=== PATIENT | female | born 1980 | race Caucasian/White ===

== ENCOUNTER → 2018-01-19 | Outpatient (REF) | payer BC, OTHER ==
[2018-01-19 21:04] LABS: BASO % 0.4 % (0.0-1.0); EOS # 0.1 10^3/uL (0.0-0.50); EOS % 1.1 % (0.0-3.0); HEMATOCRIT 42.5 % (36.0-47.0); HEMOGLOBIN 14.1 g/dl (12.0-16.0); IMMATURE GRANULOCYTE % 0.3 % (0-3.0); LYMPH # 2.2 10^3/uL (1.5-4.5); MEAN CORPUSCULAR HEMOGLOBIN 30.9 pg (27.0-33.0); MEAN CORPUSCULAR HGB CONC 33.2 g/dl (32.0-36.5); MONO # 0.4 10^3/uL (0.0-0.8); MONO % 5.4 % (0.0-5.0); NEUTROPHILS # 4.5 10^3/uL (1.8-7.7); NEUTROPHILS % 61.8 % (36.0-66.0); PLATELET COUNT, AUTOMATED 235 10^3/uL (150-450); RED BLOOD COUNT 4.57 10^6/uL (4.00-5.40); RED CELL DISTRIBUTION WIDTH 12.2 % (11.5-14.5); WHITE BLOOD COUNT 7.2 10^3/uL (4.0-10.0)
[2018-01-20 14:28] LABS: THYROGLOBULIN ANTIBODY 18.1 U/ML (<60.0)
== END ==
LOC: M LAB REF 20:09 → M LABWUC 20:09
DX: D22.61 Melanocytic nevi of right upper limb, including shoulder (principal); D22.72 Melanocytic nevi of left lower limb, including hip; D22.5 Melanocytic nevi of trunk; L81.4 Other melanin hyperpigmentation
CPT/HCPCS: 84443

== ENCOUNTER → 2018-01-25 | Outpatient (CLI) | payer BC, OTHER ==
[2018-01-25 19:20] LABS: ALBUMIN 4.3 GM/DL (3.2-5.2); ALBUMIN/GLOBULIN RATIO 1.39 (1.00-1.93); ALKALINE PHOSPHATASE 53 U/L (45-117); ALT/SGPT 25 U/L (12-78); ANION GAP 9 MEQ/L (8-16); AST/SGOT 21 U/L (7-37); BILIRUBIN,TOTAL 0.6 MG/DL (0.2-1.0); BLOOD UREA NITROGEN 14 MG/DL (7-18); CALCIUM LEVEL 9.4 MG/DL (8.5-10.1); CARBON DIOXIDE LEVEL 27 MEQ/L (21-32); CHLORIDE LEVEL 106 MEQ/L (98-107); CREATININE FOR GFR 1.03 MG/DL (0.55-1.30); GLOMERULAR FILTRATION RATE > 60.0 (>60); GLUCOSE, FASTING 74 MG/DL (70-100); POTASSIUM SERUM 4.3 MEQ/L (3.5-5.1); SODIUM LEVEL 142 MEQ/L (136-145); TOTAL PROTEIN 7.4 GM/DL (6.4-8.2)
== END ==
LOC: M ADAMS 17:08
DX: R53.83 Other fatigue (principal)
CPT/HCPCS: 80053

== ENCOUNTER → 2018-02-16 | Outpatient (REF) | payer OTHER ==
[2018-02-16 15:32] LABS: BASO % 0.4 % (0.0-1.0); EOS # 0.1 10^3/uL (0.0-0.50); EOS % 1.1 % (0.0-3.0); HEMATOCRIT 45.1 % (36.0-47.0); HEMOGLOBIN 15.1 g/dl (12.0-15.5); IMMATURE GRANULOCYTE % 0.3 % (0-3.0); LYMPH # 2.1 10^3/uL (1.5-4.5); LYMPH % 27.9 % (24.0-44.0); MEAN CORPUSCULAR HEMOGLOBIN 31.3 pg (27.0-33.0); MEAN CORPUSCULAR HGB CONC 33.5 g/dl (32.0-36.5); MEAN CORPUSCULAR VOLUME 93.4 fl (80.0-96.0); MONO # 0.5 10^3/uL (0.0-0.8); MONO % 6.7 % (0.0-5.0); NEUTROPHILS # 4.7 10^3/uL (1.8-7.7); NEUTROPHILS % 63.6 % (36.0-66.0); PLATELET COUNT, AUTOMATED 244 10^3/uL (150-450); RED BLOOD COUNT 4.83 10^6/uL (4.00-5.40); RED CELL DISTRIBUTION WIDTH 12.5 % (11.5-14.5); WHITE BLOOD COUNT 7.5 10^3/uL (4.0-10.0)
[2018-02-16 15:48] LABS: C REACTIVE PROTEIN QUANTITATIV < 0.30 MG/DL (0.00-0.30); RHEUMATOID FACTOR QUANT < 10.0 IU/ML (<15.0)
[2018-02-16 16:03] LABS: ERYTHROCYTE SEDIMENTATION RATE 1 mm/hr (0-20)
[2018-02-17 10:45] LABS: HEPATITIS B SURFACE ANTIGEN NEGATIVE (NEGATIVE)
[2018-02-17 11:13] LABS: HIV 1&2 SCREEN CENTAUR NEGATIVE (NEGATIVE)
[2018-02-17 11:13] LABS: HEPATITIS C VIRUS ABY INDEX 0.1 INDEX (<0.8)
== END ==
LOC: M SFHCPLAZ 13:29
DX: M25.50 Pain in unspecified joint (principal); R76.8 Other specified abnormal immunological findings in serum

== ENCOUNTER → 2019-05-20 | Outpatient (CLI) | payer BC, OTHER ==
--- NOTE | 2019-05-20 18:47 | REP ---
Clinical: Pain with injury Technique: AP, lateral, bilateral oblique views of the right ankle Findings: No acute fracture or dislocation. Osseous structures, soft tissues, and joint spaces including are normal. No subcutaneous emphysema or radiodense foreign body. Impression: No acute fracture or dislocation. Electronically Signed by Sam Hughes MD 05/20/2019 06:38 P
== END ==
LOC: M ADAMS 17:40
PROVIDERS: ATTEND Physician Assistant Medical
DX: M25.571 Pain in right ankle and joints of right foot (principal)

== ENCOUNTER → 2020-12-31 | Outpatient (CLI) | payer BC, OTHER ==
[2020-12-31 13:41] LABS: BASO % 0.2 % (0.0-1.0); EOS % 0.8 % (0.0-3.0); HEMOGLOBIN 13.9 g/dl (12.0-15.5); LYMPH # 1.2 10^3/uL (1.5-5.0); LYMPH % 23.4 % (24.0-44.0); MEAN CORPUSCULAR HEMOGLOBIN 29.8 pg (27.0-33.0); MEAN CORPUSCULAR HGB CONC 32.3 g/dl (32.0-36.5); MEAN CORPUSCULAR VOLUME 92.3 fl (80.0-96.0); MONO # 0.3 10^3/uL (0.0-0.8); MONO % 5.7 % (0.0-8.0); NEUTROPHILS # 3.5 10^3/uL (1.5-8.5); NEUTROPHILS % 69.7 % (36.0-66.0); PLATELET COUNT, AUTOMATED 199 10^3/uL (150-450); RED BLOOD COUNT 4.66 10^6/uL (4.00-5.40); WHITE BLOOD COUNT 5.1 10^3/uL (4.0-10.0)
[2020-12-31 13:56] LABS: ESTRADIOL 65.8 PG/ML; FOLLICLE STIMULATING HORMONE 5.9 mIU/mL; PROGESTERONE 0.21 NG/ML
[2021-01-01 16:16] LABS: TESTOSTERONE FREE (DIRECT) 4.3 pg/mL (0.0-4.2)
== END ==
LOC: M LABDRWAD 10:20
PROVIDERS: ATTEND Family Medicine
DX: R68.82 Decreased libido (principal); N95.1 Menopausal and female climacteric states; E34.9 Endocrine disorder, unspecified; Z79.899 Other long term (current) drug therapy; R89.1 Abnormal level of hormones in specimens from other organs, systems and tissues

== ENCOUNTER → 2021-02-25 | Outpatient (REF) | payer OTHER, BC ==
[2021-02-25 14:08] LABS: BASO % 0.4 % (0.0-1.0); EOS # 0.1 10^3/uL (0.0-0.5); EOS % 1.7 % (0.0-3.0); HEMOGLOBIN 13.6 g/dl (12.0-15.5); LYMPH # 1.1 10^3/uL (1.5-5.0); LYMPH % 23.1 % (24.0-44.0); MEAN CORPUSCULAR HGB CONC 33.2 g/dl (32.0-36.5); MEAN CORPUSCULAR VOLUME 93.4 fl (80.0-96.0); MONO # 0.6 10^3/uL (0.0-0.8); MONO % 12.4 % (2.0-8.0); NEUTROPHILS # 2.8 10^3/uL (1.5-8.5); PLATELET COUNT, AUTOMATED 196 10^3/uL (150-450); RED BLOOD COUNT 4.39 10^6/uL (4.00-5.40); WHITE BLOOD COUNT 4.6 10^3/uL (4.0-10.0)
[2021-02-25 14:44] LABS: ESTRADIOL 30.8 PG/ML; FOLLICLE STIMULATING HORMONE 3.8 mIU/mL; PROGESTERONE 0.21 NG/ML
[2021-02-26 19:10] LABS: TESTOSTERONE FREE (DIRECT) 1.4 pg/mL (0.0-4.2)
== END ==
LOC: M LABDRWAD 12:37
PROVIDERS: ATTEND Physician Assistant Medical
DX: E34.9 Endocrine disorder, unspecified (principal); R89.1 Abnormal level of hormones in specimens from other organs, systems and tissues; N95.1 Menopausal and female climacteric states

== ENCOUNTER → 2021-03-07 | Outpatient (CLI) | payer BC, OTHER ==
--- NOTE | 2021-03-07 15:42 | REP ---
INDICATION: L FINGER INJURY COMPARISON: None. TECHNIQUE: AP, lateral, bilateral oblique views left 2nd digit. FINDINGS: There is a nondisplaced transverse fracture along the base of the distal phalanx. IMPRESSION: Nondisplaced transverse fracture involving the distal phalanx. <Electronically signed by Sam Hughes > 03/07/21 1530
== END ==
LOC: M RAD 15:13
PROVIDERS: ATTEND Physician Assistant
DX: S62.661A Nondisplaced fracture of distal phalanx of left index finger, initial encounter for closed fracture (principal); X58.XXXA Exposure to other specified factors, initial encounter; Y92.9 Unspecified place or not applicable

== ENCOUNTER → 2021-03-18 | Outpatient (CLI) | payer BC ==
--- NOTE | 2021-03-18 13:30 | REPMRS ---
Patient History The patient states she had a clinical breast exam in . Taking hormonal contraceptives for 13 years beginning at age 27. Testosterone implant 6 months beginning at age 40. Patient states no breast complaints today. Patient has signed MRS History Sheet. Digital Woman Screen Mammo: March 18, 2021 - Exam #: [id number] Bilateral CC and MLO view(s) were taken. Technologist: Rachel Chacko [employer] Machine FINDINGS: The breast tissue is heterogeneously dense. This may lower the sensitivity of mammography. Screening. Digital screening (2D) mammography was performed bilaterally in the CC and MLO projections. Additionally, breast tomosynthesis (3D mammography) was performed bilaterally in the CC and MLO projections. Todays exam was compared to the prior exams(s). By history, the patient has no complaints of a palpable breast abnormality or other significant breast complaints. The breasts are unchanged in size and shape.Once again, dense heterogenous fibroglandular elements are seen bilaterally in a stable appearing pattern but to such a degree that the sensitivity of the mammogram in detecting cancer is decreased. There are no thong-soft tissue densities or spiculated masses. There is no internal architectural distortion. There are no suspicious thong-calcific clusters. Skin thickening or nipple retraction is not present. IMPRESSION: BI-RADS Category 2- Benign Findings(s). There is no evidence of malignant alteration of the breasts. Followup examination recommended in one year. The Volpara volumetric breast density category is C, the breasts are heterogenously dense which may obscure small masses.This mammogram was read with the assistance of [facility],an FDA approved computer aided detection system for mammography. The lifetime Tyrer-Cuzick score is 10.4 % Negative x-ray reports should not delay surgical consultation if a dominant or clinically suspicious mass is present. Not all breast cancers can be identified by mammography. Therefore, we recommend that you continue to perform regular breast self-examination and physical examination and then promptly contact your physician of any concerns or changes. Adenosis and dense breasts may obscure an underlying neoplasm. Assessment: BI-RADS/ACR category 2 mammogram. Benign Findings. Recommendation Routine screening mammogram of both breasts in 1 year. Electronically Signed By: Micheal Kaplan DO 03/18/21 2090
== END ==
LOC: M WHC 12:12
PROVIDERS: ATTEND Plastic Surgery
DX: Z12.31 Encounter for screening mammogram for malignant neoplasm of breast (principal)

== ENCOUNTER → 2021-04-09 | Outpatient (CLI) | payer BC ==
--- NOTE | 2021-04-10 08:11 | REPPI ---
INDICATION: M54.2 NECK PAIN M79.10 MUSCLE PAIN A69.20 LYME DISEASE COMPARISON: None. TECHNIQUE: AP, lateral, flexion/extension, bilateral oblique, swimmer's and open-mouth views. FINDINGS: Straightening of normal lordosis is nonspecific. Alignment is maintained. Moderate to advanced multilevel degenerative changes primarily involving C5-6 through C7-T1 includes endplate sclerosis, marginal osteophytosis, disc space narrowing, and facet hypertrophy. No evidence for acute fracture/compression injury or subluxation. Open mouth view demonstrates normal C1-C2 articulation and odontoid process. IMPRESSION: Moderate to advanced multilevel degenerative changes centered at C6-7. <Electronically signed by Sam Hughes > 04/10/21 0800
== END ==
LOC: M PLAIMG 15:22
PROVIDERS: ATTEND Internal Medicine Infectious Disease
DX: M50.323 Other cervical disc degeneration at C6-C7 level (principal); M79.10 Myalgia, unspecified site; A69.20 Lyme disease, unspecified

== ENCOUNTER → 2021-05-21 | Outpatient (CLI) | payer BC, OTHER ==
[2021-05-21 10:21] LABS: BASO % 0.5 % (0.0-1.0); EOS # 0.1 10^3/uL (0.0-0.5); EOS % 1.4 % (0.0-3.0); HEMOGLOBIN 15.2 g/dl (12.0-15.5); LYMPH # 1.8 10^3/uL (1.5-5.0); LYMPH % 24.6 % (24.0-44.0); MEAN CORPUSCULAR HEMOGLOBIN 30.4 pg (27.0-33.0); MEAN CORPUSCULAR HGB CONC 32.3 g/dl (32.0-36.5); MONO # 0.5 10^3/uL (0.0-0.8); MONO % 6.4 % (2.0-8.0); NEUTROPHILS # 4.9 10^3/uL (1.5-8.5); NEUTROPHILS % 66.8 % (36.0-66.0); PLATELET COUNT, AUTOMATED 317 10^3/uL (150-450); WHITE BLOOD COUNT 7.3 10^3/uL (4.0-10.0)
[2021-05-21 10:51] LABS: ESTRADIOL 55.3 PG/ML; FOLLICLE STIMULATING HORMONE 7.1 mIU/mL; PROGESTERONE 0.21 NG/ML
[2021-05-22 19:08] LABS: TESTOSTERONE FREE (DIRECT) 2.5 pg/mL (0.0-4.2)
== END ==
LOC: M PLALAB 08:56
PROVIDERS: ATTEND Nurse Practitioner Family
DX: N95.1 Menopausal and female climacteric states (principal); E34.9 Endocrine disorder, unspecified; E07.89 Other specified disorders of thyroid

== ENCOUNTER → 2021-08-19 | Outpatient (CLI) | payer BC, OTHER ==
[2021-08-19 14:03] LABS: BASO % 0.4 % (0.0-1.0); EOS # 0.1 10^3/uL (0.0-0.5); EOS % 1.4 % (0.0-3.0); HEMATOCRIT 46.4 % (36.0-47.0); HEMOGLOBIN 15.2 g/dl (12.0-15.5); LYMPH # 2.1 10^3/uL (1.5-5.0); LYMPH % 27.9 % (24.0-44.0); MEAN CORPUSCULAR HEMOGLOBIN 30.5 pg (27.0-33.0); MEAN CORPUSCULAR HGB CONC 32.8 g/dl (32.0-36.5); MONO # 0.5 10^3/uL (0.0-0.8); MONO % 6.8 % (2.0-8.0); NEUTROPHILS # 4.7 10^3/uL (1.5-8.5); NEUTROPHILS % 63.1 % (36.0-66.0); PLATELET COUNT, AUTOMATED 237 10^3/uL (150-450); RED BLOOD COUNT 4.99 10^6/uL (4.00-5.40); WHITE BLOOD COUNT 7.4 10^3/uL (4.0-10.0)
[2021-08-19 14:43] LABS: ESTRADIOL 164.1 PG/ML; FOLLICLE STIMULATING HORMONE 6.8 mIU/mL; PROGESTERONE 0.21 NG/ML
[2021-08-20 19:07] LABS: TESTOSTERONE FREE (DIRECT) 0.6 pg/mL (0.0-4.2)
== END ==
LOC: M PLALAB 10:08
PROVIDERS: ATTEND Family Medicine
DX: Z09 Encounter for follow-up examination after completed treatment for conditions other than malignant neoplasm (principal); Z87.898 Personal history of other specified conditions

== ENCOUNTER → 2022-03-04 | Outpatient (CLI) | payer BC, OTHER ==
[2022-03-04 13:59] LABS: BASO % 0.5 % (0.0-1.0); EOS # 0.1 10^3/uL (0.0-0.5); EOS % 1.9 % (0.0-3.0); HEMATOCRIT 46.7 % (36.0-47.0); HEMOGLOBIN 15.5 g/dl (12.0-15.5); LYMPH % 26.6 % (24.0-44.0); MEAN CORPUSCULAR HEMOGLOBIN 30.6 pg (27.0-33.0); MEAN CORPUSCULAR HGB CONC 33.2 g/dl (32.0-36.5); MEAN CORPUSCULAR VOLUME 92.1 fl (80.0-96.0); MONO # 0.5 10^3/uL (0.0-0.8); MONO % 6.8 % (2.0-8.0); NEUTROPHILS # 4.8 10^3/uL (1.5-8.5); NEUTROPHILS % 63.8 % (36.0-66.0); PLATELET COUNT, AUTOMATED 291 10^3/uL (150-450); RED BLOOD COUNT 5.07 10^6/uL (4.00-5.40); WHITE BLOOD COUNT 7.5 10^3/uL (4.0-10.0)
[2022-03-04 14:37] LABS: ALBUMIN 4.2 GM/DL (3.2-5.2); ALT/SGPT 31 U/L (12-78); BILIRUBIN,TOTAL 0.5 MG/DL (0.2-1.0); BLOOD UREA NITROGEN 13 MG/DL (7-18); CALCIUM LEVEL 9.4 MG/DL (8.5-10.1); CARBON DIOXIDE LEVEL 29 MEQ/L (21-32); CHLORIDE LEVEL 104 MEQ/L (98-107); CHOLESTEROL LEVEL 200 MG/DL (<200); CHOLESTEROL RISK RATIO 2.857 (<5); CREATININE FOR GFR 0.91 MG/DL (0.55-1.30); FERRITIN 59 NG/ML (8-252); FREE T3 2.6 PG/ML (2.2-4.0); FREE T4 0.88 NG/DL (0.76-1.46); GLOMERULAR FILTRATION RATE > 60.0 (>58); GLUCOSE, FASTING 77 MG/DL (70-100); HDL CHOLESTEROL 70 MG/DL (>40); IRON (FE) 108 UG/DL (50-170); LDL CHOLESTEROL 112 MG/DL (<100); MAGNESIUM LEVEL 2.4 MG/DL (1.8-2.4); NON-HDL-C 130 MG/DL; POTASSIUM SERUM 4.6 MEQ/L (3.5-5.1); SODIUM LEVEL 139 MEQ/L (136-145); TOTAL PROTEIN 7.3 GM/DL (6.4-8.2); TRIGLYCERIDES LEVEL 88 MG/DL (<150); URIC ACID 3.3 MG/DL (2.6-6.0)
[2022-03-04 14:38] LABS: TOTAL 25(OH) VITAMIN D 61.1 NG/ML (30.0-100.0)
[2022-03-04 14:39] LABS: ESTRADIOL 46.7 PG/ML; LUTEINIZING HORMONE 0.6 mIU/mL; PROGESTERONE 0.33 NG/ML
[2022-03-04 14:40] LABS: FOLLICLE STIMULATING HORMONE 1.6 mIU/mL
[2022-03-05 18:10] LABS: INSULIN LEVEL 5.7 uIU/mL (2.6-24.9); TESTOSTERONE FREE (DIRECT) 0.9 pg/mL (0.0-4.2)
== END ==
LOC: M PLALAB 11:57
PROVIDERS: ATTEND Family Medicine
DX: Z00.00 Encounter for general adult medical examination without abnormal findings (principal); Z13.1 Encounter for screening for diabetes mellitus; E78.5 Hyperlipidemia, unspecified; Z13.0 Encounter for screening for diseases of the blood and blood-forming organs and certain disorders involving the immune mechanism

== ENCOUNTER → 2022-12-05 | Outpatient (CLI) | payer OTHER, BC ==
[2022-12-05 14:24] LABS: BASO % 0.6 % (0.0-1.0); EOS # 0.1 10^3/uL (0.0-0.5); EOS % 1.8 % (0.0-3.0); HEMATOCRIT 45.1 % (36.0-47.0); HEMOGLOBIN 14.3 g/dl (12.0-15.5); LYMPH # 1.9 10^3/uL (1.5-5.0); LYMPH % 27.9 % (24.0-44.0); MEAN CORPUSCULAR HEMOGLOBIN 29.9 pg (27.0-33.0); MEAN CORPUSCULAR HGB CONC 31.7 g/dl (32.0-36.5); MEAN CORPUSCULAR VOLUME 94.4 fl (80.0-96.0); MONO # 0.5 10^3/uL (0.0-0.8); MONO % 8.1 % (2.0-8.0); NEUTROPHILS # 4.1 10^3/uL (1.5-8.5); NEUTROPHILS % 61.3 % (36.0-66.0); PLATELET COUNT, AUTOMATED 258 10^3/uL (150-450); RED BLOOD COUNT 4.78 10^6/uL (4.00-5.40); WHITE BLOOD COUNT 6.6 10^3/uL (4.0-10.0)
[2022-12-05 14:53] LABS: ESTRADIOL 202.5 PG/ML; FOLLICLE STIMULATING HORMONE 4.8 mIU/ML
[2022-12-05 14:54] LABS: PROGESTERONE 0.21 NG/ML
[2022-12-06 20:07] LABS: TESTOSTERONE FREE (DIRECT) 0.6 pg/mL (0.0-4.2)
== END ==
LOC: M LABDRWAD 09:57
PROVIDERS: ATTEND Family Medicine
DX: R89.1 Abnormal level of hormones in specimens from other organs, systems and tissues (principal); N95.1 Menopausal and female climacteric states; E34.9 Endocrine disorder, unspecified; E07.89 Other specified disorders of thyroid

== ENCOUNTER → 2023-02-12 | Outpatient (CLI) | payer BC, OTHER ==
[2023-02-12 16:45] LABS: BASO % 0.3 % (0.0-1.0); EOS # 0.1 10^3/uL (0.0-0.5); EOS % 0.9 % (0.0-3.0); HEMATOCRIT 45.2 % (36.0-47.0); HEMOGLOBIN 14.4 g/dl (12.0-15.5); LYMPH # 1.6 10^3/uL (1.5-5.0); LYMPH % 23.9 % (24.0-44.0); MEAN CORPUSCULAR HEMOGLOBIN 30.2 pg (27.0-33.0); MEAN CORPUSCULAR HGB CONC 31.9 g/dl (32.0-36.5); MEAN CORPUSCULAR VOLUME 94.8 fl (80.0-96.0); MONO # 0.4 10^3/uL (0.0-0.8); MONO % 6.7 % (2.0-8.0); NEUTROPHILS # 4.5 10^3/uL (1.5-8.5); NEUTROPHILS % 67.9 % (36.0-66.0); PLATELET COUNT, AUTOMATED 268 10^3/uL (150-450); RED BLOOD COUNT 4.77 10^6/uL (4.00-5.40); WHITE BLOOD COUNT 6.6 10^3/uL (4.0-10.0)
== END ==
LOC: M PLALAB 14:26
PROVIDERS: ATTEND Allergy & Immunology
DX: T78.3XXA Angioneurotic edema, initial encounter (principal)

== ENCOUNTER → 2024-02-05 | Outpatient (CLI) | payer BC, OTHER | LOC: M WUC 10:57 | PROVIDERS: ATTEND Nurse Practitioner Family | DX: M79.672 Pain in left foot (principal) ==

== ENCOUNTER 2024-05-16 13:59 | Emergency (ER) | payer BC, OTHER ==
[2024-05-16] MEDS: ONDANSETRON 4MG 2ML VIAL IV ONE (14:25)
[2024-05-16] MEDS: MORPHINE 4 MG/ML 1ML VIAL IV ONE ×3 (14:26→15:50)
[2024-05-16 15:03] LABS: BASO % 0.4 % (0.0-1.0); EOS # 0.1 10^3/uL (0.0-0.5); EOS % 0.8 % (0.0-3.0); HEMATOCRIT 44.3 % (36.0-47.0); HEMOGLOBIN 14.9 g/dl (12.0-15.5); LYMPH # 1.4 10^3/uL (1.5-5.0); LYMPH % 19.8 % (24.0-44.0); MEAN CORPUSCULAR HEMOGLOBIN 30.5 pg (27.0-33.0); MEAN CORPUSCULAR HGB CONC 33.6 g/dl (32.0-36.5); MEAN CORPUSCULAR VOLUME 90.6 fl (80.0-96.0); MONO # 0.4 10^3/uL (0.0-0.8); MONO % 5.3 % (2.0-8.0); NEUTROPHILS # 5.2 10^3/uL (1.5-8.5); NEUTROPHILS % 73.4 % (36.0-66.0); PLATELET COUNT, AUTOMATED 256 10^3/uL (150-450); RED BLOOD COUNT 4.89 10^6/uL (4.00-5.40); WHITE BLOOD COUNT 7.1 10^3/uL (4.0-10.0)
[2024-05-16 15:06] LABS: BLOOD UREA NITROGEN 16 MG/DL (9-23); CALCIUM LEVEL 9.2 MG/DL (8.5-10.1); CARBON DIOXIDE LEVEL 25 MMOL/L (20-31); CHLORIDE LEVEL 104 MMOL/L (98-107); CREATININE FOR GFR 0.87 MG/DL (0.55-1.30); GLOMERULAR FILTRATION RATE > 60.0 (>58); GLUCOSE, FASTING 93 MG/DL (60-100); POTASSIUM SERUM 4.1 MMOL/L (3.5-5.1); SODIUM LEVEL 135 MMOL/L (136-145)
[2024-05-16] MEDS ORDERED: propofoL 200 MG/20 ML VIAL IV.PROC PRN (15:55)
[2024-05-16] MEDS: NS 1,000 ML IV SCH (15:55)
[2024-05-16] MEDS: propofoL 200 MG/20 ML VIAL IV ONE ×2 (16:56→16:57)
[2024-05-16] MEDS: NS 1,000 ML IV ONE (17:00)
[2024-05-16] MEDS: KETOROLAC 30 MG/ML 1ML VIAL IV ONE (17:00)
[2024-05-16 17:09] VITALS: TEMP 97.9
[2024-05-16] MEDS: PERCOCET 5MG/325MG TAB PO ONE (17:09)
[2024-05-16] MEDS ORDERED: PERC5TAB12 PO (17:47)
[2024-05-16 17:52] VITALS: BP 121/64
[2024-05-16 17:54] VITALS: O2SAT 97
[2024-05-16 18:44] VITALS: O2SAT 98
== END 2024-05-16 18:47 | disposition home or self-care (01) ==
LOC: EDBD 13:59 → M ED 13:59
DX: S73.004A Unspecified dislocation of right hip, initial encounter (principal); W19.XXXA Unspecified fall, initial encounter; Y92.009 Unspecified place in unspecified non-institutional (private) residence as the place of occurrence of the external cause; Y93.89 Activity, other specified; Y99.9 Unspecified external cause status
CPT/HCPCS: 27266; 73501; 73502; 80048; 84702; 85025; 93041; 94760; 96361; 96374; 96375; 96376; 99156; 99157; 99285; J1885; J2405

== ENCOUNTER 2024-07-15 04:06 | Emergency (ER) | payer BC, OTHER ==
[~2024-07-15] VITALS: Ht 170.2 cm; Wt 184.0 kg
[~2024-07-15 04:06] MED LIST: PERC5TAB12 PO
[2024-07-15 04:46] LABS: BASO % 0.2 % (0.0-1.0); EOS # 0.1 10^3/uL (0.0-0.5); EOS % 0.6 % (0.0-3.0); HEMATOCRIT 43.8 % (36.0-47.0); HEMOGLOBIN 14.6 g/dl (12.0-15.5); LYMPH # 1.3 10^3/uL (1.5-5.0); LYMPH % 10.2 % (24.0-44.0); MEAN CORPUSCULAR HGB CONC 33.3 g/dl (32.0-36.5); MONO # 0.7 10^3/uL (0.0-0.8); MONO % 5.1 % (2.0-8.0); NEUTROPHILS # 10.6 10^3/uL (1.5-8.5); NEUTROPHILS % 83.5 % (36.0-66.0); PLATELET COUNT, AUTOMATED 248 10^3/uL (150-450); RED BLOOD COUNT 4.71 10^6/uL (4.00-5.40); WHITE BLOOD COUNT 12.8 10^3/uL (4.0-10.0)
[2024-07-15 05:11] LABS: BLOOD UREA NITROGEN 16 MG/DL (9-23); CALCIUM LEVEL 8.7 MG/DL (8.5-10.1); CARBON DIOXIDE LEVEL 25 MMOL/L (20-31); CHLORIDE LEVEL 107 MMOL/L (98-107); CREATININE FOR GFR 0.82 MG/DL (0.55-1.30); GLOMERULAR FILTRATION RATE > 60.0 (>58); GLUCOSE, FASTING 104 MG/DL (60-100); POTASSIUM SERUM 4.3 MMOL/L (3.5-5.1); SODIUM LEVEL 138 MMOL/L (136-145)
[2024-07-15] MEDS: KETOROLAC 30 MG/ML 1ML VIAL IV ONE (07:55)
[2024-07-15 08:07] LABS: HCG, SERUM QUALITATIVE NEGATIVE (NEGATIVE)
[2024-07-15] MEDS: diazePAM 10MG/2ML SYRINGE IV ONE ×2 (08:08→10:35)
[2024-07-15] MEDS ORDERED: ISOVUE-370 76% 100ML VIAL As Ordered ONE (08:12)
[2024-07-15] MEDS: ONDANSETRON 4MG 2ML VIAL IV ONE (08:52)
[2024-07-15] MEDS: MORPHINE 4 MG/ML 1ML VIAL IV ONE (08:53)
[2024-07-15] MEDS ORDERED: KETO10TAB PO (10:22)
[2024-07-15] MEDS ORDERED: VALI5TAB PO (10:22)
[2024-07-15] MEDS: MORPHINE 2 MG/ML 1ML VIAL IV ONE (10:36)
[2024-07-15 12:18] LABS: CPK CREATINE PHOSPHOKINASE 135 U/L (34-145); MB/CK RELATIVE INDEX 1.48 (< OR =4)
[2024-07-15 12:46] VITALS: BP 138/77; TEMP 97.3; O2SAT 98
== END 2024-07-15 12:47 | disposition home or self-care (01) ==
LOC: M ED 04:06
DX: M62.838 Other muscle spasm (principal); Z87.09 Personal history of other diseases of the respiratory system; Z87.01 Personal history of pneumonia (recurrent)
CPT/HCPCS: 71045; 71275; 80048; 82550; 82553; 84484; 84703; 85025; 93005; 96374; 96375; 96376; 99284; J1885; J2405; J3360; Q9967

== ENCOUNTER → 2024-07-22 | Outpatient (CLI) | payer BC ==
[~2024-07-22] MED LIST changes: +KETO10TAB PO; +VALI5TAB PO
== END ==
LOC: M PLAIMG 16:20
PROVIDERS: ATTEND Physician Assistant
DX: R10.9 Unspecified abdominal pain (principal)

== ENCOUNTER → 2024-08-18 | Outpatient (REF) | payer BC | LOC: M LAB REF 13:26 → M LABDRWAD 13:26 | PROVIDERS: ATTEND Nurse Practitioner Family | DX: L30.9 Dermatitis, unspecified (principal) ==

== ENCOUNTER → 2024-12-20 | Outpatient (REF) | payer BC ==
[2024-12-20 15:01] LABS: ESTRADIOL 33.5 PG/ML; FOLLICLE STIMULATING HORMONE 5.7 mIU/ML
[2024-12-20 15:02] LABS: PROGESTERONE 0.93 NG/ML
[2024-12-20 15:03] LABS: BASO % 0.5 % (0.0-1.0); EOS # 0.1 10^3/uL (0.0-0.5); EOS % 1.6 % (0.0-3.0); HEMATOCRIT 45.7 % (36.0-47.0); HEMOGLOBIN 14.8 g/dl (12.0-15.5); LYMPH # 1.7 10^3/uL (1.5-5.0); LYMPH % 27.2 % (24.0-44.0); MEAN CORPUSCULAR HEMOGLOBIN 30.5 pg (27.0-33.0); MEAN CORPUSCULAR HGB CONC 32.4 g/dl (32.0-36.5); MEAN CORPUSCULAR VOLUME 94.2 fl (80.0-96.0); MONO # 0.5 10^3/uL (0.0-0.8); MONO % 7.8 % (2.0-8.0); NEUTROPHILS % 62.7 % (36.0-66.0); PLATELET COUNT, AUTOMATED 236 10^3/uL (150-450); RED BLOOD COUNT 4.85 10^6/uL (4.00-5.40); WHITE BLOOD COUNT 6.3 10^3/uL (4.0-10.0)
== END ==
LOC: M LABDRWAD 12:53
PROVIDERS: ATTEND Family Medicine
DX: R89.1 Abnormal level of hormones in specimens from other organs, systems and tissues (principal); N95.1 Menopausal and female climacteric states; E34.9 Endocrine disorder, unspecified; E07.89 Other specified disorders of thyroid

== ENCOUNTER → 2025-10-30 | Outpatient (REF) | LOC: M PLAIMG 15:31 | PROVIDERS: ATTEND Internal Medicine | DX: R52 Pain, unspecified (principal); Z96.641 Presence of right artificial hip joint ==